=== PATIENT | male | born 1970 ===

== ENCOUNTER → 2021-10-26 | Outpatient (CLI) | payer SELFPAY | END | disposition home or self-care (01) | LOC: LAB SHORT 18:52 | DX: L60.3 Nail dystrophy (principal) | CPT/HCPCS: 87070; 87077; 87186; 87205 ==

== ENCOUNTER 2024-05-03 15:57 | Emergency (ER) | payer OTHER ==
[~2024-05-03] VITALS: Ht 177.8 cm; Wt 104.3 kg
[2024-05-03 16:04] VITALS: BP 203/111
== END 2024-05-03 18:14 | disposition left against medical advice (07) ==
LOC: ER 15:57
DX: Z53.21 Procedure and treatment not carried out due to patient leaving prior to being seen by health care provider (principal)
CPT/HCPCS: 99281